=== PATIENT | female | born 1940 | race Caucasian/White ===

== ENCOUNTER → 2017-03-11 | Outpatient (CLI) | payer MEDICARE ==
[~2017-03-11] MED LIST: ASPI325T6 PO; ASPIRIN 81M81 MG/TA2 PO; COLACE 100100 MG/CAP PO; ETODOLAC; FERROUS SU325 MG/TAB PO; FOLIC ACID 40400 MCG PO; HUMALOG100 U/ML SC; LEVEMIR100 U/ML SC; LEVEMIR100 U/ML SQ; MEVACOR 20M20 MG/TAB PO; MILK OF MA400 MG/5 M PO; MOTRIN 600600 MG/TAB PO; NORCO 325 MG-7.1 TAB PO; NORVASC 10MG10 MG PO; PERCOCET 325 MG1 TA2 PO; ROXICODONE 55 MG/TAB PO; TYLENOL 325MG325 MG PO; TYLENOL EXTRA500 M1 PO; VASOTEC20 MG PO; VITAMIN B12500 MCG PO; VITAMIN C500 MG PO
== END ==
LOC: COL.RAD 08:26
DX: M25.551 Pain in right hip (principal)
CPT/HCPCS: J3301; Q9967

== ENCOUNTER 2017-11-15 10:31 | Inpatient (IN) | payer MEDICARE ==
[~2017-11-15] VITALS: Ht 157.5 cm; Wt 94.8 kg
[2018-01-22] VITALS (12 sets, daily range): BP systolic 97–160; BP diastolic 50–83; PULSE 52–70; TEMP 98.1–98.7
[2018-01-22] MEDS ORDERED: VASOTEC20 MG PO (07:10)
[2018-01-22] MEDS ORDERED: NOVOLOG 100U100 U/M1 SQ (07:11)
[2018-01-22] MEDS ORDERED: LEVEMIR SQ (07:13)
[2018-01-22 17:52] LABS: CREATININE, serum 0.74 mg/dL (0.52-1.25); POTASSIUM 4.6 mmol/L (3.4-5.0)
[2018-01-23 03:53] VITALS: BP 118/48; PULSE 61; TEMP 97.9
[2018-01-23 08:00] VITALS: BP 135/60; PULSE 69; TEMP 97.8
[2018-01-23 12:00] VITALS: BP 103/47; PULSE 65; TEMP 97.6
[2018-01-23 14:40] VITALS: BP 126/49; PULSE 76; TEMP 97.8
[2018-01-23 20:01] VITALS: BP 135/56; PULSE 98; TEMP 98.6
[2018-01-24 04:16] VITALS: BP 108/45; PULSE 83; TEMP 98.4
[2018-01-24] MEDS ORDERED: ASPI325T6 PO (06:30)
[2018-01-24] MEDS ORDERED: NORCO 325 MG-7.1 TAB PO (06:30)
[2018-01-24] MEDS ORDERED: ROXICODONE 55 MG/TAB PO (06:30)
[2018-01-24 07:12] LABS: BASO # 0.1 (0.0-0.2); BASO % 0.5 % (0.0-2.0); EOS # 0.3 (0.0-0.7); EOS % 3.4 % (0-4.0); GRAN # 6.3 (1.4-6.5); GRAN % 66.9 % (42.2-75.2); LYMPH # 1.4 (1.2-3.4); LYMPH % 14.9 % (20.0-51.0); MEAN CELL VOLUME 93 fl (80.0-100.0); MEAN CORPUSCULAR HGB CONC 32 g/dl (33.0-37.0); MEAN PLATELET VOLUME 10.4 fl (7.4-10.4); MONO # 1.3 (0.1-0.6); PLATELET COUNT 181 K/mm3 (130-400); RED BLOOD COUNT 3.35 M/mm3 (4.10-5.30); REDCELL DISTRIBUTION WIDTH-CV 13.2 % (11.5-14.5)
[2018-01-24 07:15] LABS: HEMOGLOBIN 9.9 g/dl (12.5-16.0); MEAN CORPUSCULAR HEMOGLOBIN 30 pg (27.0-31.0)
[2018-01-24 07:22] LABS: CALCIUM 7.9 mg/dL (8.4-10.2); CREATININE, serum 0.9 mg/dL (0.52-1.25); POTASSIUM 4.3 mmol/L (3.4-5.0)
[2018-01-24 07:55] VITALS: BP 114/50; PULSE 76; TEMP 98.8
[2018-01-24 13:02] VITALS: BP 125/49; PULSE 82; TEMP 98.2
== END 2018-01-24 14:30 | disposition home or self-care (01) | DRG 470 ==
LOC: JCC 01-22 06:44
PROVIDERS: Nurse Practitioner Family; Orthopaedic Surgery
PROC: 0SR904Z Replacement of Right Hip Joint with Ceramic on Polyethylene Synthetic Substitute, Open Approach (ICD-10-PCS; principal; 2018-01-22 10:05)
DX: M16.11 Unilateral primary osteoarthritis, right hip (principal); I10 Essential (primary) hypertension; E78.5 Hyperlipidemia, unspecified; E11.9 Type 2 diabetes mellitus without complications; Z79.4 Long term (current) use of insulin; Z98.84 Bariatric surgery status; E83.51 Hypocalcemia
CPT/HCPCS: 99222; 99232-AI; A4314; A9284; C1713; C1776; J0690; J1815; J2250; J2405; J2704; J3010; J7030

== ENCOUNTER → 2017-11-18 | Outpatient (CLI) | payer MEDICARE | LOC: COL.VAS 13:03 | DX: I70.201 Unspecified atherosclerosis of native arteries of extremities, right leg (principal) ==

== ENCOUNTER → 2018-01-15 | Outpatient (CLI) | payer MEDICARE ==
[2018-01-15 17:26] LABS: HIV 1/2 Antibodies Non-Reactive; HIV-1p24 Antigen Non-Reactive
== END ==
LOC: COL.LAB 16:34
PROVIDERS: Orthopaedic Surgery
DX: Z01.812 Encounter for preprocedural laboratory examination (principal); M16.11 Unilateral primary osteoarthritis, right hip

== ENCOUNTER → 2022-07-12 | Outpatient (CLI) | payer MEDICARE ==
[~2022-07-12] MED LIST changes: +LEVEMIR SQ; +NOVOLOG 100U100 U/M1 SQ
== END ==
LOC: COL.RAD 13:43
DX: I65.23 Occlusion and stenosis of bilateral carotid arteries (principal); I67.2 Cerebral atherosclerosis; M47.812 Spondylosis without myelopathy or radiculopathy, cervical region
CPT/HCPCS: Q9967